=== PATIENT | male | born 1985 | race African-American/Black ===

== ENCOUNTER 2017-06-24 02:44 | Emergency (ER) | payer MEDICAID ==
[~2017-06-24] VITALS: Ht 182.9 cm; Wt 93.1 kg
[2017-06-24] MEDS ORDERED: ONDANSETRON 4MG ODT PO ONE (05:30)
[2017-06-24] MEDS ORDERED: ONDANSETRON HCL 4MG/2ML VIAL IM ONE (05:30)
[2017-06-24] MEDS ORDERED: KETOROLAC 30MG/ML VIAL IM ONE (05:30)
[2017-06-24 07:45] VITALS: BP 111/61
== END 2017-06-24 08:23 | disposition home or self-care (01) ==
LOC: ER 06:00
DX: S06.0X0A Concussion without loss of consciousness, initial encounter (principal); S00.83XA Contusion of other part of head, initial encounter; J45.909 Unspecified asthma, uncomplicated; W51.XXXA Accidental striking against or bumped into by another person, initial encounter; Y93.67 Activity, basketball; Y92.39 Other specified sports and athletic area as the place of occurrence of the external cause
CPT/HCPCS: 70450; 72125; 96372; 99284; J1885; J2405

== ENCOUNTER 2021-02-11 13:21 | Emergency (ER) | payer MEDICAID ==
[~2021-02-11] VITALS: Ht 182.9 cm; Wt 91.0 kg
[2021-02-11] MEDS ORDERED: ONDANSETRON 4MG ODT PO ONE (13:45)
[2021-02-11] MEDS ORDERED: MORPHINE SULFATE 10 MG/ML CPJ IM ONE (13:45)
[2021-02-11] MEDS ORDERED: IBUP-2030 MT (16:39)
[2021-02-11] MEDS ORDERED: HYDR-4346 MT (16:39)
[2021-02-11 17:00] VITALS: BP 118/80
== END 2021-02-11 17:10 | disposition home or self-care (01) ==
LOC: ER 13:21
DX: S62.300A Unspecified fracture of second metacarpal bone, right hand, initial encounter for closed fracture (principal); S62.304A Unspecified fracture of fourth metacarpal bone, right hand, initial encounter for closed fracture; S62.302A Unspecified fracture of third metacarpal bone, right hand, initial encounter for closed fracture; J45.909 Unspecified asthma, uncomplicated; X58.XXXA Exposure to other specified factors, initial encounter; Y93.89 Activity, other specified; Y92.89 Other specified places as the place of occurrence of the external cause; Y99.8 Other external cause status
CPT/HCPCS: 29125; 73130; 96372; 99283; J2270; Q0162; A4565

== ENCOUNTER 2021-03-21 14:57 | Emergency (ER) | payer MEDICAID ==
[~2021-03-21] VITALS: Ht 182.9 cm; Wt 80.0 kg
[~2021-03-21 14:57] MED LIST: HYDR-4346 MT; IBUP-2030 MT
[2021-03-21] MEDS ORDERED: HYDROCODONE/ACETAMINOPHEN 5/325MG TABLET PO ONE (16:00)
[2021-03-21] MEDS ORDERED: KETOROLAC 30MG/ML VIAL IM ONE (17:15)
[2021-03-21] MEDS ORDERED: NEOM28.37 TP (17:16)
[2021-03-21] MEDS ORDERED: IBUP-2030 MT (17:16)
[2021-03-21 17:38] VITALS: BP 118/70
== END 2021-03-21 17:39 | disposition home or self-care (01) ==
LOC: ER 14:57
DX: S00.03XA Contusion of scalp, initial encounter (principal); S10.93XA Contusion of unspecified part of neck, initial encounter; S30.811A Abrasion of abdominal wall, initial encounter; V47.0XXA Car driver injured in collision with fixed or stationary object in nontraffic accident, initial encounter; Y93.89 Activity, other specified; Y92.488 Other paved roadways as the place of occurrence of the external cause
CPT/HCPCS: 70450; 72125; 96372; 99285; J1885